=== PATIENT | male | born 1940 | race Caucasian/White ===

== ENCOUNTER 2024-02-23 06:47 | Day surgery (SDC) | payer OTHER ==
[2024-02-22 11:09] LABS: BASOPHILS # (AUTO) 0.09 K/uL (0.00-0.20); BASOPHILS % (AUTO) 1.3 % (0.0-5.0); EOSINOPHILS % (AUTO) 4.3 % (0.0-8.0); HEMATOCRIT 43.7 % (42-54); IMMATURE GRANULOCYTE ABSOLUTE 0.03 K/uL (0-1); LYMPHOCYTES % (AUTO) 28.8 % (21.0-51.0); MEAN CORPUSCULAR HEMOGLOBIN 28.2 pg (27.0-33.0); MEAN CORPUSCULAR HGB CONC 31.4 g/dL (32.0-36.0); MEAN CORPUSCULAR VOLUME 90.1 fL (79-99); MONOCYTES # (AUTO) 0.7 K/uL (0.1-1.0); MONOCYTES % (AUTO) 9.4 % (3.0-13.0); NEUTROPHILS # (AUTO) 3.9 K/uL (1.8-7.7); NEUTROPHILS % (AUTO) 55.8 % (40.0-77.0); PLATELET COUNT (AUTO) 174 K/uL (130-400); RED BLOOD CELL COUNT(AUTO) 4.85 MIL/uL (4.50-6.20); RED CELL DISTRIBUTION WIDTH 15.9 % (11.0-15.5)
[2024-02-22 11:14] LABS: CREATININE 1.2 mg/dL (0.5-1.3); POTASSIUM 4.1 mmol/L (3.5-5.1)
[2024-02-22 11:23] LABS: INR 1.04 (0.85-1.15); PROTHROMBIN TIME 11.2 SEC (9.6-11.6)
[2024-02-22 11:24] LABS: PARTIAL THROMBOPLASTIN TIME 24.8 SEC (26.3-35.5)
[2024-02-22 11:37] LABS: B-TYPE NATRIURETIC PEPTIDE 20 pg/mL (0-100)
[2024-02-22 12:16] LABS: APPEARANCE,URINE CLEAR (CLEAR); BILIRUBIN,URINE NEGATIVE (NEGATIVE); COLOR,URINE YELLOW (YELLOW); GLUCOSE, URINE (UA) >=1000 mg/dL (NEGATIVE); KETONES,URINE NEGATIVE (NEGATIVE); LEUKOCYTE ESTERASE ,URINE NEGATIVE Leu/uL (NEGATIVE); NITRATE,URINE 1+ (NEGATIVE); OCCULT BLOOD,URINE NEGATIVE (NEGATIVE); PROTEIN,URINE NEGATIVE (NEGATIVE); UROBILINOGEN,URINE 0.2 mg/dL (0.2-1.0)
[2024-02-22 12:17] LABS: ADD UA MICROSCOPIC YES
[2024-02-22 12:20] LABS: BACTERIA,URINE MANY /HPF (None Seen); MUCUS,URINE RARE LPF (None Seen); RBC,URINE 0-1 /HPF (0-1)
[2024-02-22 15:05] VITALS: BP 118/67; PULSE 66; RESP 18; TEMP 98.1
[~2024-02-23] VITALS: Ht 182.9 cm; Wt 98.6 kg
[2024-02-23] VITALS (9 sets, daily range): BP systolic 116–139; BP diastolic 67–76; PULSE 58–86; RESP 14–22; TEMP 97.5–97.6
[~2024-02-23 06:47] MED LIST: AEC81 PO; ATOR40TA69 PO; CALCIUM CITRATE PO; CLOP75TA32 PO; CYAN-106 IM; EMPA10TA PO; ERGO500093 PO; GLUC-29 PO; INSLAN SQ; MESA1.2T3 PO; METF-526 PO; METO50TA18 PO; NITR0.4T50 SL; PANT40TA54 PO; PHENYLEPHRINE HCL 10 MG/ML 1ML VIAL IV ONE; SEMA2PEN SQ; TRAZ-187 PO
[2024-02-23] MEDS: 0.9%NACL 1000ML 1,000 ML IV SCH (08:03)
[2024-02-23] MEDS ORDERED: HEParin 10,000 UNIT/10ML (1,000 UNIT/ML) VIAL ONE (10:47)
[2024-02-23] MEDS ORDERED: LIDOCAINE HCL 400MG/20ML VIAL ONE (10:47)
[2024-02-23] MEDS ORDERED: NITROGLYCERIN 50MG VIAL ONE (10:47)
[2024-02-23] MEDS ORDERED: IOHEXOL 350 MG/ML 100ML INFUS..BTL IV ONE (10:47)
[2024-02-23] MEDS ORDERED: niCARDIpine 25MG INJ IV ONE (10:47)
[2024-02-23] MEDS ORDERED: HEParin-NS 1,000 UNIT/500 ML 1,000 ML IV ONE (10:47)
[2024-02-23] MEDS ORDERED: MIDAZOLAM HCL 1 MG/ML 2ML VIAL ONE (10:48)
[2024-02-23] MEDS ORDERED: FENTanyl CITRate PF 50 MCG/1 ML 2ML VIAL ONE (10:48)
[2024-02-23] MEDS ORDERED: IOHEXOL-350 50ML VIAL IV ONE (11:59)
[2024-02-23] MEDS: 0.9% NACL 500ML IV.SOLN 500 ML IV SCH (12:30)
[2024-02-23] MEDS ORDERED: DILT-37 PO (13:21)
== END 2024-02-23 15:40 | disposition home or self-care (01) ==
LOC: DAH 06:47
PROVIDERS: ATTEND Internal Medicine Cardiovascular Disease
DX: R07.9 Chest pain, unspecified (principal); I25.111 Atherosclerotic heart disease of native coronary artery with angina pectoris with documented spasm; I10 Essential (primary) hypertension; E11.9 Type 2 diabetes mellitus without complications; K21.9 Gastro-esophageal reflux disease without esophagitis; Z95.5 Presence of coronary angioplasty implant and graft; Z90.49 Acquired absence of other specified parts of digestive tract; Z79.82 Long term (current) use of aspirin; Z79.4 Long term (current) use of insulin; Z79.01 Long term (current) use of anticoagulants; Z79.899 Other long term (current) drug therapy
CPT/HCPCS: 80048; 83880; 85025; 85610; 85730; 87086 ×2; 81001; 36415; 71045; 93005; 93458; 93571; 93572; 87186; J2371; C1887 ×2; C1769 ×2; C1894; A4649; J3010; J3490 ×3; J7030; J1644 ×2; J2250; Q9967 ×2; A4215; A4222; A4221; A4663; A4216; A4606; Q9965 ×2; A4223 ×3; 99156; 99157